=== PATIENT | male | born 1990 | race Caucasian/White ===

== ENCOUNTER 2018-12-19 14:44 | Emergency (ER) | payer OTHER ==
[~2018-12-19] VITALS: Ht 180.3 cm; Wt 74.8 kg
[2018-12-19] MEDS ORDERED: MEDROLDOSEPACK PO (15:09)
[2018-12-19 16:18] VITALS: BP 151/71
== END 2018-12-19 16:20 | disposition home or self-care (01) ==
LOC: M.ERS 14:44
DX: I80.02 Phlebitis and thrombophlebitis of superficial vessels of left lower extremity (principal)